=== PATIENT | female | born 1950 | race Caucasian/White ===

== ENCOUNTER 2018-08-28 00:48 | Day surgery (SDC) | payer MEDICARE ==
[2017-01-24 16:05] VITALS: Ht 152.4 cm; Wt 97.1 kg
[~2018-08-28] VITALS: Ht 152.4 cm; Wt 97.1 kg
[~2018-08-28 00:48] MED LIST: ALP5 PO; ALPR-429 PO; ASPI-757 PO; CA C1TAB9 PO; CHOL10005 PO; FLUO-202 PO; FLUO40CA67 PO; FLUO40CA76 PO; GLUC100026 PO; LEV125 PO; LEVO-3 PO; LEVOTHYROXIN; LISI20TA29 PO; NAPR-1043 PO; PER PO; PSEU-112 PO; PSEU30TA8 PO; QUET100T29 PO; VITA100T4 PO; ZOLP-350 PO; [UNRECOGNIZED DRUG - CODE] PO; [UNRECOGNIZED DRUG - CODE] PO
[2018-08-28 09:15] VITALS: BP 129/79
[2018-08-28] MEDS ORDERED: LIDOCAINE/SOD BICARB 8.4% SYR ID ONE (09:25)
[2018-08-28] MEDS ORDERED: NORMOSOL R SOLN(*) 1000 ML BAG 1,000 ML IV PRN (09:25)
[2018-08-28 11:15] VITALS: BP 106/64
[2018-08-28] MEDS ORDERED: PROPOFOL EMUL(*) 10MG/ML 20 ML 60 ML ONE (11:18)
--- NOTE | 2018-08-28 11:36 | Short(Outpt) Discharge Summary ---
Discharge Summary Reason for Hosp/Final Diag: (1) Encounter for screening colonoscopy Hospital Course & Plan: pt presented for colonoscopy. she tolerated the procedure well. unable to advance scope all the way to cecum. will set pt up for virtual colonoscopy. she will be discharged home when criteria met. Departure Discharge to: Home Discharge Instructions Home Meds Reported Medications Pseudoephedrine Hcl (NASAL DECONGESTANT) 30 Mg Tablet, 30 MG PO QHS 08/21/18 Fluoxetine Hcl (FLUOXETINE HCL) 40 Mg Capsule, 40 MG PO QDAY, CAPSULE 08/21/18 Levothyroxine Sodium (LEVOTHYROXINE SODIUM) 0.125 Mg Tab, 0.125 MG PO QDAY, TAB 01/21/17 Calcium/Magnesium (CALCIUM MAGNESIUM TABLET) 1 Each Tablet, 1 EACH PO QHS 01/15/17 Alprazolam (XANAX) 0.5 Mg Tablet, 1.5 MG PO HS, TAB 01/15/17 Zolpidem Tartrate (AMBIEN) 10 Mg Tablet, 1 TAB PO QHS, TAB 01/15/17 Quetiapine Fumarate (SEROQUEL) 100 Mg Tablet, 150 MG PO HS 01/15/17 Discontinued Reported Medications Fluoxetine Hcl (PROZAC) 20 Mg Capsule, 20 MG PO QDAY, CAPSULE PT TAKES 60MG A DAY 40MG AND 20MG CAPSULE A DAY 01/21/17 Fluoxetine Hcl (PROZAC) 40 Mg Capsule, 40 MG PO QDAY, CAPSULE PT TAKES 60MG A DAY 40MG AND 20MG CAPSULE A DAY 01/15/17 Diet: Regular Activity: As Tolerated Special Instructions: we will help set up virtual colonoscopy for you. we will call you in 10 days with biopsy results. VIKY BUTLER Aug 28, 2018 11:36
== END 2018-08-28 11:15 | disposition home or self-care (01) ==
LOC: OR 00:48
PROVIDERS: ATTEND Surgery
DX: Z12.11 Encounter for screening for malignant neoplasm of colon (principal); K63.5 Polyp of colon; K56.699 Other intestinal obstruction unspecified as to partial versus complete obstruction; Q27.33 Arteriovenous malformation of digestive system vessel
CPT/HCPCS: 00811; 45380; 45382; 88305; J2704